=== PATIENT | male | born 1975 | race Hispanic/Latino ===

== ENCOUNTER 2018-01-16 22:50 | Emergency (ER) | payer OTHER ==
[~2018-01-16] VITALS: Ht 170.2 cm; Wt 74.8 kg
--- NOTE | 2018-01-16 23:50 | ED PSYCHIATRIC COMPLAINT ---
History of Present Illness General Chief Complaint: ETOH/Drug Related Complaint Stated Complaint: "ETOH" Source: patient, old records, EMS Exam Limitations: intoxication Triage Note: PT BIBA FROM HOME AFTER GIRLFRIEND CALLED PD FOR ETOH. GIRLFRIEND REPORTED TO EMS THAT PT DRANK MORE THAN USUAL, ABOUT 16 BEERS AND SHE DID NOT FEEL SAFE STAYING IN THE APARTMENT WITH HIM LIKE THAT. SHE ALSO STATED HE FELL DOWN THE STAIRS BUT PT DOES NOT RECALL PT WAS AND CONTINUES TO BE COOPERATIVE. Triage Nurses Notes Reviewed? yes Onset: Just prior to arrival Duration: hour(s):, constant, continues in ED Timing: recent history Severity: moderate, severe Associated Symptoms: impaired concentration, injury HPI: Prior to admission patient was drinking alcohol girlfriend reports he fell down the stairs. The patient denies fever chills nausea vomiting diarrhea abdominal pain chest pain shortness breath headache dysuria rash bleeding loss consciousness. (Nilson Aj MD) Vital Signs & Intake/Output Vital Signs & Intake/Output Vital Signs Date Time Temp Pulse Resp B/P B/P Pulse O2 O2 Flow FiO2 Mean Ox Delivery Rate 01/17 0642 98.7 86 18 99/61 96 Room Air 01/17 0328 96.8 80 18 134/75 96 Room Air 01/17 0030 97.5 88 18 140/89 98 Room Air (Akiko GALEANA,Antony Link) Past History Travel History Traveled to [place] past 21 day No Medical History Any Pertinent Medical History? none Neurological: NONE EENT: NONE Cardiovascular: NONE Respiratory: NONE Gastrointestinal: NONE Hepatic: NONE Renal: NONE Musculoskeletal: NONE Psychiatric: NONE Endocrine: NONE Blood Disorders: NONE Cancer(s): NONE Surgical History Surgical History: non-contributory Psychosocial History What is your primary language Ivorian Tobacco Use: Never used ETOH Use: heavy use Family History Hx Contributory? No (Nilson Aj MD) Review of Systems Review of Systems Constitutional: Reports: no symptoms. EENTM: Reports: no symptoms. Respiratory: Reports: no symptoms. Cardiovascular: Reports: no symptoms. GI: Reports: no symptoms. Genitourinary: Reports: no symptoms. Musculoskeletal: Reports: no symptoms. Skin: Reports: no symptoms. Neurological/Psychological: Reports: see HPI, confusion. Hematologic/Endocrine: Reports: no symptoms. Immunologic/Allergic: Reports: no symptoms. All Other Systems: Reviewed and Negative (Nilson Aj MD) Physical Exam Physical Exam General Appearance: well developed/nourished, alert, comfortable, intoxicated Head: atraumatic, normal appearance Eyes: Bilateral: normal appearance, PERRL, EOMI. Ears, Nose, Throat: normal pharynx, normal ENT inspection, hearing grossly normal Neck: normal inspection, supple Respiratory: normal breath sounds Cardiovascular: regular rate/rhythm Gastrointestinal: soft, non-tender Extremities: normal range of motion Neurological/Psychiatric: no motor/sensory deficits, awake, alert, anxious, release specialist II-XII nml as tested Appearance/Memory/Insight: disheveled, impaired insight Behavoir/Eye Contact/Speech: cooperative, normal speech Thoughts/Hallucinations: no apparent hallucination Skin: intact, normal color, warm/dry SAD PERSONS Done? patient not suicidal (Nilson Aj MD) Progress Differential Diagnosis: drug intoxication, drug overdose, drug withdrawal, electrolyte abnormality Hand-Off Endorsed To: Antony Wharton MD Endorsed Time: 754 Pending: other (sobriety) (Nilson Aj MD) Plan of Care: Orders Procedure Date/time Status Regular Diet 01/17 B Active URINE DRUG SCREEN FOR ER ONLY 01/16 2300 Complete Laboratory Tests 01/16/18 2300: Urine Opiates Screen < 100, Methadone Screen < 40, Barbiturate Screen < 60, Ur Phencyclidine Scrn < 6.00, Amphetamines Screen < 100, U Benzodiazepines Scrn < 85, Urine Cocaine Screen < 50, Urine Cannabis Screen < 5.00 Comments: 01/17/2018 7:50:22 AM patient 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 01/17/2018 8:01:39 AM patient awoke easily this morning and offer is no complaint. He feels ready to go home. (Akiko GALEANA,Antony Link) Departure Departure Condition: Stable Clinical Impression Primary Impression: Alcohol intoxication delirium Referrals: Qi GALEANA,Lilian Link (PCP/Family) Departure Forms: General Discharge Information (Nilson Aj MD) Departure Disposition: HOME OR SELF CARE Additional Instructions: Try to cut down on your drinking. Consider detox program. Follow-up with your primary care physician this week. Return if any concerns or sudden worsening. (Akiko GALEANA,Antony Link)
[2018-01-17 06:42] VITALS: BP 99/61
== END 2018-01-17 08:10 ==
LOC: ERH 22:50
DX: F10.121 Alcohol abuse with intoxication delirium (principal)
CPT/HCPCS: 80307